=== PATIENT | male | born 1960 | race Caucasian/White ===

== ENCOUNTER 2021-09-02 00:59 | Inpatient (IN) | payer OTHER ==
[~2021-09-02] VITALS: Ht 170.2 cm; Wt 76.4 kg
[2021-09-02 01:46] LABS: Hemoglobin 15.6 g/dL (13.5-17.5)
[2021-09-02 01:48] LABS: Basophils # (auto) 0.1 10 ^3/uL (0-0.2); Basophils % (auto) 0.6 % (0.0-2.0); Eosinophils # (auto) 0 10 ^3/uL (0-0.8); Eosinophils % (auto) 0.3 % (0.0-7.0); Lymphocytes # (auto) 1.6 10 ^3/uL (0.4-5.4); Lymphocytes % (auto) 16.1 % (10.0-50.0); Mean Corpuscular Hemoglobin 34.6 pg (28.0-32.0); Mean Corpuscular Hgb Conc. 33.9 g/dL (32.0-36.0); Monocytes # (auto) 0.7 10 ^3/uL (0-1.3); Monocytes % (auto) 6.7 % (0.0-12.0); Neutrophils # (auto) 7.6 10 ^3/uL (1.6-8.6); Neutrophils % (auto) 76.3 % (37.0-80.0); Nucleated Red Blood Cells % 0.2 %; Red Blood Cells 4.51 10^6/uL (4.5-5.90); Red Cell Distribution Width 13.7 % (11.8-14.3)
[2021-09-02 02:00] LABS: Albumin 3.4 g/dL (3.4-5.0); BUN/Creatinine Ratio 10.8; Calcium 9.3 mg/dL (8.5-10.1); Magnesium 2.2 mg/dL (1.6-2.6); Potassium 4.3 mmol/L (3.5-5.1)
[2021-09-02 02:02] LABS: Bilirubin, Total 0.4 mg/dL (0.2-1.0); Total Protein 6.6 g/dL (6.4-8.2)
[2021-09-02 07:10] LABS: Urine Bacteria NONE SEEN /hpf (None Seen); Urine Blood Negative /uL (Negative); Urine Specific Gravity 1.012 (1.001-1.035); Urine WBC 5 /hpf (0 - 3)
[2021-09-02] MEDS ORDERED: ALBUTEROL SULF 2.5 MG/0.5ML(0.5%) NEB SOLN NEB ONE (12:30)
[2021-09-02] MEDS ORDERED: ASPirin 81 mg TAB PO ONE ×2 (12:30→16:15)
[2021-09-02] MEDS ORDERED: IPRATROPIUM BROM 0.5 MG/2.5ML INH SOL NEB ONE ×2 (12:30→16:45)
[2021-09-02] MEDS ORDERED: FUROSEMIDE 20 MG/2 ML VIAL IV ONE (12:45)
[2021-09-02] MEDS ORDERED: cefTRIAXone 1GM/50ML D5W 50 ML IV ONE ×2 (12:45→16:45)
[2021-09-02] MEDS ORDERED: MORPHINE SULFATE INJECTION 2 MG/ML SYRG IV PRN ×3 (13:45→16:45)
[2021-09-02] MEDS ORDERED: DEXTROSE (50%) 50ML SYRG IV PRN (13:45)
[2021-09-02] MEDS ORDERED: NITROGLYCERIN 0.4 MG SL TAB SL PRN ×2 (13:45→16:45)
[2021-09-02] MEDS ORDERED: IOHEXOL 350 MG/ML 100ML IJ ONE (16:00)
[2021-09-02] MEDS ORDERED: LISINOPRIL 10 MG TAB PO ONE (16:15)
[2021-09-02] MEDS ORDERED: LORazepam 2MG/ML-1ML VIAL IV PRN (16:45)
[2021-09-02] MEDS ORDERED: PANTOPRAZOLE 40 MG/10 ML VIAL INJ IV ONE (16:45)
[2021-09-02] MEDS ORDERED: ALUM & MAG HYDROX-SIMETH LIQ(MAALOX) 30 ML PO PRN (16:45)
[2021-09-02] MEDS ORDERED: BUMETANIDE 2.5mg/10ml (0.25 mg/ml) INJ IV ONE (16:45)
[2021-09-02] MEDS ORDERED: LORazepam 0.5 MG TAB PO PRN (16:45)
[2021-09-02] MEDS ORDERED: METOPROLOL SUCCINATE XL 50 MG TAB PO ONE (16:45)
[2021-09-02] MEDS ORDERED: SODIUM CHLORIDE 0.9% 1,000 ML IV SCH (16:45)
[2021-09-02] MEDS ORDERED: ACETAMINOPHEN 325 MG TAB PO PRN (16:45)
[2021-09-02] MEDS ORDERED: FOLIC ACID 1 MG TAB PO ONE (16:45)
[2021-09-02] MEDS ORDERED: DOCUSATE SOD 100 MG CAP PO PRN (16:45)
[2021-09-02] MEDS ORDERED: BUDESONIDE (INHALATION) 0.5 MG/2 ML NEB NEB ONE (16:45)
[2021-09-02] MEDS ORDERED: THIAMINE 100mg/ml INJ (200mg/2ml VIAL) IV ONE (16:45)
[2021-09-02] MEDS ORDERED: METOCLOPRAMIDE HCL 5MG/ml INJ 2ml VIAL IV PRN ×2 (16:45→17:00)
[2021-09-02] MEDS ORDERED: HYDROcodone-ACET 5/325MG TAB PO PRN (16:45)
[2021-09-02] MEDS ORDERED: MULTIPLE VITAMINS W/ MINERALS TAB PO ONE (16:45)
[2021-09-02] MEDS ORDERED: ENOXAPARIN SOD 40 MG/0.4 ML SYRINGE SC ONE (16:45)
[2021-09-02] MEDS: ACCU-CHEK COMFORT CURVE STRIP VI SCH ×2 (18:30→22:00)
[2021-09-02] MEDS: InsuLIN REG 1unit/0.01ml Soln (100units/ml) SC SCH ×2 (18:30→22:00)
[2021-09-02] MEDS: ATORVASTATIN 20 MG TAB PO SCH (22:00)
[2021-09-02] MEDS: BUDESONIDE (INHALATION) 0.5 MG/2 ML NEB NEB SCH (22:00)
[2021-09-03 05:08] LABS: Basophils # (auto) 0 10 ^3/uL (0-0.2); Eosinophils # (auto) 0 10 ^3/uL (0-0.8); Eosinophils % (auto) 0.6 % (0.0-7.0); Lymphocytes # (auto) 1.3 10 ^3/uL (0.4-5.4); Monocytes # (auto) 0.7 10 ^3/uL (0-1.3); Neutrophils # (auto) 5.4 10 ^3/uL (1.6-8.6)
[2021-09-03 05:10] LABS: Basophils % (auto) 0.6 % (0.0-2.0); Mean Corpuscular Hemoglobin 34.7 pg (28.0-32.0); Mean Corpuscular Hgb Conc. 34.1 g/dL (32.0-36.0); Mean Corpuscular Volume 101.7 fL (80.0-100.0); Monocytes % (auto) 8.8 % (0.0-12.0); Nucleated Red Blood Cells % 0.1 %; Red Blood Cells 4.03 10^6/uL (4.5-5.90); Red Cell Distribution Width 13.8 % (11.8-14.3); White Blood Cell 7.4 10^3/uL (4.4-10.8)
[2021-09-03 05:20] LABS: INR 0.98 (0.9-1.15); Partial Thromboplastin Time 30.7 sec (23.6-33.0)
[2021-09-03 05:31] LABS: Potassium 3.6 mmol/L (3.5-5.1)
[2021-09-03 05:45] LABS: Albumin 2.8 g/dL (3.4-5.0); BUN/Creatinine Ratio 12.9; Calcium 8.6 mg/dL (8.5-10.1); Magnesium 2.2 mg/dL (1.6-2.6); Total Protein 5.5 g/dL (6.4-8.2); Uric Acid 5.4 mg/dL (3.5-7.2)
[2021-09-03 06:20] LABS: Bilirubin, Total 0.7 mg/dL (0.2-1.0)
[2021-09-03] MEDS: ACCU-CHEK COMFORT CURVE STRIP VI SCH ×4 (07:39→21:21)
[2021-09-03] MEDS: InsuLIN REG 1unit/0.01ml Soln (100units/ml) SC SCH ×4 (07:44→21:25)
[2021-09-03] MEDS: BUMETANIDE 2.5mg/10ml (0.25 mg/ml) INJ IV SCH ×2 (08:37→17:43)
[2021-09-03] MEDS ORDERED: cefTRIAXone 1GM/50ML D5W 50 ML IV SCH (09:00)
[2021-09-03] MEDS ORDERED: LISINOPRIL 10 MG TAB PO SCH (10:00)
[2021-09-03] MEDS ORDERED: METOPROLOL SUCCINATE XL 50 MG TAB PO SCH (10:00)
[2021-09-03] MEDS: THIAMINE HCL 100 MG TAB PO SCH (11:02)
[2021-09-03] MEDS: MULTIPLE VITAMINS W/ MINERALS TAB PO SCH (11:02)
[2021-09-03] MEDS: ASPirin 81 mg TAB PO SCH (11:02)
[2021-09-03] MEDS: FOLIC ACID 1 MG TAB PO SCH (11:02)
[2021-09-03] MEDS: PANTOPRAZOLE 40 MG/10 ML VIAL INJ IV SCH (11:03)
[2021-09-03] MEDS: ENOXAPARIN SOD 40 MG/0.4 ML SYRINGE SC SCH (11:07)
[2021-09-03] MEDS: BUDESONIDE (INHALATION) 0.5 MG/2 ML NEB NEB SCH ×2 (13:06→19:01)
[2021-09-03 13:35] LABS: Alcohol, Urine < 3.0 mg/dL (0-10); Amphetamine Screen, Urine NEGATIVE (NEGATIVE); Barbiturate Scree,Urine NEGATIVE (NEGATIVE); Benzodiazephine Screen, Urine NEGATIVE (NEGATIVE); Cannabinoid Screen, Urine NEGATIVE (NEGATIVE); Cocaine Screen, Urine NEGATIVE (NEGATIVE); Opiate Scree,Urine NEGATIVE (NEGATIVE); Phencyclidine Screen, Urine NEGATIVE (NEGATIVE)
[2021-09-03] MEDS: IPRATROPIUM BROM 0.5 MG/2.5ML INH SOL NEB PRN (19:01)
[2021-09-03] MEDS: ATORVASTATIN 20 MG TAB PO SCH (21:25)
[2021-09-03 22:00] VITALS: BP 114/75
[2021-09-03] MEDS ORDERED: INSULIN LANTUS (GLARGINE) 1 /0.01ml (100units/ml) SC SCH (22:00)
[2021-09-04 05:00] VITALS: BP 117/75
[2021-09-04 05:48] LABS: Basophils # (auto) 0 10 ^3/uL (0-0.2); Eosinophils # (auto) 0.1 10 ^3/uL (0-0.8); Mean Corpuscular Hgb Conc. 33.7 g/dL (32.0-36.0); White Blood Cell 6.4 10^3/uL (4.4-10.8)
[2021-09-04 05:50] LABS: Basophils % (auto) 0.5 % (0.0-2.0); Eosinophils % (auto) 0.8 % (0.0-7.0); Hematocrit 44.4 % (41.0-53.0); Lymphocytes # (auto) 1.7 10 ^3/uL (0.4-5.4); Lymphocytes % (auto) 26.9 % (10.0-50.0); Mean Corpuscular Hemoglobin 34.7 pg (28.0-32.0); Mean Corpuscular Volume 102.9 fL (80.0-100.0); Monocytes # (auto) 0.8 10 ^3/uL (0-1.3); Monocytes % (auto) 11.9 % (0.0-12.0); Neutrophils # (auto) 3.8 10 ^3/uL (1.6-8.6); Neutrophils % (auto) 59.9 % (37.0-80.0); Nucleated Red Blood Cells % 0.3 %; Red Blood Cells 4.32 10^6/uL (4.5-5.90); Red Cell Distribution Width 13.8 % (11.8-14.3)
[2021-09-04] MEDS: BUDESONIDE (INHALATION) 0.5 MG/2 ML NEB NEB SCH (05:52)
[2021-09-04] MEDS: IPRATROPIUM BROM 0.5 MG/2.5ML INH SOL NEB PRN (05:52)
[2021-09-04 06:05] LABS: BUN/Creatinine Ratio 15.2; Calcium 9.5 mg/dL (8.5-10.1); Potassium 4.5 mmol/L (3.5-5.1)
[2021-09-04] MEDS: ACCU-CHEK COMFORT CURVE STRIP VI SCH ×2 (06:18→12:00)
[2021-09-04] MEDS: InsuLIN REG 1unit/0.01ml Soln (100units/ml) SC SCH ×2 (06:22→12:01)
[2021-09-04] MEDS: BUMETANIDE 2.5mg/10ml (0.25 mg/ml) INJ IV SCH (06:25)
[2021-09-04 09:00] VITALS: BP 107/68
[2021-09-04] MEDS: PANTOPRAZOLE 40 MG/10 ML VIAL INJ IV SCH (09:05)
[2021-09-04] MEDS: ENOXAPARIN SOD 40 MG/0.4 ML SYRINGE SC SCH (09:05)
[2021-09-04] MEDS: ASPirin 81 mg TAB PO SCH (09:06)
[2021-09-04] MEDS: FOLIC ACID 1 MG TAB PO SCH (09:06)
[2021-09-04] MEDS: MULTIPLE VITAMINS W/ MINERALS TAB PO SCH (09:07)
[2021-09-04] MEDS: THIAMINE HCL 100 MG TAB PO SCH (09:07)
[2021-09-04] MEDS ORDERED: LISINOPRIL 5 MG TAB PO SCH (10:00)
[2021-09-04] MEDS ORDERED: DAPAGLIFLOZIN 5 MG TAB PO SCH (10:00)
[2021-09-04] MEDS ORDERED: CARVEDILOL 3.125 MG TAB PO SCH (10:00)
[2021-09-04] MEDS ORDERED: INSUINJ37 SC (10:18)
[2021-09-04 11:00] LABS: Hepatitis A Ab IgM Negative
[2021-09-04 11:12] LABS: Hepatitis B Core IgM Negative
[2021-09-04] MEDS ORDERED: LISI2.5T47 PO (12:33)
[2021-09-04] MEDS ORDERED: PANT40TA2 PO (12:33)
[2021-09-04] MEDS ORDERED: CAR3125T PO (12:33)
[2021-09-04] MEDS ORDERED: FURO1TAB33 PO (12:33)
[2021-09-04] MEDS ORDERED: ALBUAER3 IN (12:33)
[2021-09-04] MEDS ORDERED: ASPI-378 PO (12:33)
[2021-09-04] MEDS ORDERED: DAPA1TAB4 PO (12:33)
[2021-09-04 13:00] VITALS: BP 99/61
[2021-09-08 14:26] LABS: Hepatitis C Antibody Negative (Negative)
== END 2021-09-04 15:50 | disposition home or self-care (01) | DRG 280 ==
LOC: EDBD 00:59 → ER 01:01 → TELE 13:45 → TELE-CENTR 09-03 18:10
PROVIDERS: ADMIT Hospitalist; ATTEND Internal Medicine
DX: I11.0 Hypertensive heart disease with heart failure (principal); I21.A1 Myocardial infarction type 2; I50.43 Acute on chronic combined systolic (congestive) and diastolic (congestive) heart failure; N39.0 Urinary tract infection, site not specified; K86.1 Other chronic pancreatitis; I42.0 Dilated cardiomyopathy; K70.10 Alcoholic hepatitis without ascites; K21.9 Gastro-esophageal reflux disease without esophagitis; Z20.822 Contact with and (suspected) exposure to COVID-19; K29.70 Gastritis, unspecified, without bleeding; E66.01 Morbid (severe) obesity due to excess calories; E55.9 Vitamin D deficiency, unspecified; E78.5 Hyperlipidemia, unspecified; F10.20 Alcohol dependence, uncomplicated; F17.200 Nicotine dependence, unspecified, uncomplicated; E11.65 Type 2 diabetes mellitus with hyperglycemia; J44.9 Chronic obstructive pulmonary disease, unspecified; Z79.4 Long term (current) use of insulin; Z91.19 Patient's noncompliance with other medical treatment and regimen; Z71.6 Tobacco abuse counseling; Z68.26 Body mass index [BMI] 26.0-26.9, adult
CPT/HCPCS: 36415; 71045; 71275; 80048; 80053; 80061; 80074; 80307; 81001; 82306; 82962; 83036; 83735; 83880; 84100; 84443; 84484; 84550; 85025; 85379; 85610; 85730; 87040; 87086; 87426; 93005; 93306; 94640; 96365; 96372; 96375; 97163; C9113; G0378; J0696; J1815